=== PATIENT | male | born 1955 | race Caucasian/White ===

== ENCOUNTER → 2020-09-19 | Day surgery (SDC) | payer MEDICARE, OTHER ==
[~2020-09-19] MED LIST: MIRAPEX ER3 MG PO; PRINIVIL10 MG PO; ZOCOR20 MG PO; ZOLOFT50 MG PO
[2020-09-19 08:48] LABS: HCT 43.9 % (42.0-52.0); HGB 15.2 g/dl (13.2-18.0); MCH 31.8 pg (25.0-31.0); MCHC 34.6 g/dL (32.0-36.0); MCV 91.8 fL (78.0-100.0); MPV 9.8 fL (6.0-9.5); RBC 4.78 M/uL (4.70-6.00); WBC 5.6 K/uL (4.0-10.5)
[2020-09-19 09:12] LABS: ALBUMIN 3.9 g/dL (3.4-5.0); BILIRUBIN - TOTAL 0.9 mg/dL (0.2-1.0); BUN/CREAT RATIO (CALC) 22.2 RATIO; CREATININE 0.81 mg/dL (0.67-1.17); GLOBULIN (CALCULATION) 3.2 g/dL; TOTAL PROTEIN 7.1 g/dL (6.4-8.2)
== END | disposition home or self-care (01) ==
LOC: FAS 07:45
PROVIDERS: Surgery
DX: Z12.11 Encounter for screening for malignant neoplasm of colon (principal); K63.5 Polyp of colon; I10 Essential (primary) hypertension; F32.9 Major depressive disorder, single episode, unspecified; G25.81 Restless legs syndrome; E78.5 Hyperlipidemia, unspecified; G47.30 Sleep apnea, unspecified; Z99.89 Dependence on other enabling machines and devices; Z79.899 Other long term (current) drug therapy
CPT/HCPCS: 36415; 80053; 88305; J2704; J7120